=== PATIENT | male | born 1965 | race Caucasian/White ===

== ENCOUNTER 2016-12-09 13:53 | Emergency (ER) | payer SELFPAY ==
[~2016-12-09 13:53] MED LIST: ENAL2.5 PO; LORT5TAB PO; POLY10O OD; SYNT112T PO
== END 2016-12-09 13:58 | disposition left against medical advice (07) ==
LOC: PHED 13:53
DX: R68.89 Other general symptoms and signs (principal)
CPT/HCPCS: 99281